=== PATIENT | female | born 1985 | race Caucasian/White ===

== ENCOUNTER → 2021-02-07 17:21 | Outpatient (BNVA) | payer SELFPAY | PROVIDERS: PCP Family Medicine; Visit Provider Nurse Practitioner Family | DX: R60.0 Localized edema (principal) | CPT/HCPCS: 80053; 83880; 85651; 86140 ==

== ENCOUNTER → 2021-02-26 10:53 | Outpatient (BNVA) | payer SELFPAY | PROVIDERS: PCP Family Medicine; Visit Provider Nurse Practitioner Family | DX: R79.82 Elevated C-reactive protein (CRP) (principal); R70.0 Elevated erythrocyte sedimentation rate; I10 Essential (primary) hypertension; R60.9 Edema, unspecified | CPT/HCPCS: 84550; 86160; 86162; 86200; 86235; 86255; 86376; 86431 ==